=== PATIENT | female | born 1995 | race Caucasian/White ===

== ENCOUNTER 2016-09-16 15:53 | Emergency (ER) | payer OTHER ==
[~2016-09-16] VITALS: Ht 160 cm; Wt 66.2 kg
[~2016-09-16 15:53] MED LIST: ENDOCET 5-3251 EACH PO; IBUPROFEN800 MG PO; PRENATAL TABLE1 EAC3 PO
[2016-09-16 16:07] LABS: BASE EXCESS -0.9 mEq/L (-3 to +3); BICARBONATE 19.2 mEq/L (22-26); CARBOXY HGB 1.2 % (0-5); COMMENTS - BLOOD GASES A+C+; DEVICE AEROSOL MASK; METHEMOGLOBIN 1.2 % (0-1.5); O2 FLOW 8 L/MIN; PCO2 21 mm Hg (35-45); PO2 149 mm Hg (80-100); SITE LR; TOTAL RESP RATE 40 resp/min; pH 7.57 (7.35-7.45)
[2016-09-16 16:31] LABS: HEMATOCRIT 38.2 % (36.0-46.0); MCH 30.2 PG (29.0-34.0); MCHC 33.5 G/DL (30.0-36.0); MCV 90.1 FL (83-99); MEAN PLAT.VOLUME 9.5 uM^3 (9.5-12.4); PLATELET COUNT 233 K/uL (156-360); RBC DIS.WIDTH-CV 12.1 % (11.8-14.6); RBC DIS.WIDTH-SD 39.1 % (39-53); RED BLOOD COUNT 4.24 M/uL (3.80-5.20); WHITE BLOOD COUNT 6.4 K/uL (4.1-10.2)
[2016-09-16 16:42] LABS: CHLORIDE 110 mEq/L (99-109); POTASSIUM 2.6 mEq/L (3.7-5.4); SODIUM 142 mEq/L (136-147)
[2016-09-16 16:44] LABS: GLUCOSE 124 mg/dL (70-99)
[2016-09-16 16:45] LABS: ANION GAP 15 MEQ/L (2-14)
[2016-09-16 16:48] LABS: GFR ESTIMATE (CALCULATED) > 59 mL/min/
[2016-09-16 16:49] LABS: UREA NITROGEN (BUN) 8 mg/dL (9-23)
[2016-09-16 17:39] LABS: QUANTITATIVE HCG < 4.0 MIU/ML
[2016-09-16] MEDS ORDERED: HYCODAN SYRUP480 ML PO (20:02)
[2016-09-16] MEDS ORDERED: ZITHROMAX250 MG PO (20:02)
[2016-09-16 20:22] LABS: INFLUENZA A VIRAL ANTIGEN POSITIVE; INFLUENZA B VIRAL ANTIGEN NEGATIVE
[2016-09-16 20:31] VITALS: BP 123/80
== END 2016-09-16 20:32 | disposition home or self-care (01) ==
LOC: EME 15:53
PROVIDERS: Emergency Medicine
PROC: 0CJS8ZZ Inspection of Larynx, Via Natural or Artificial Opening Endoscopic (ICD-10-PCS; principal; 2016-09-16)
DX: R06.1 Stridor (principal); J11.1 Influenza due to unidentified influenza virus with other respiratory manifestations; J38.7 Other diseases of larynx; Z87.891 Personal history of nicotine dependence
CPT/HCPCS: 36600; 71010; 80048; 82803; 84702; 85027; 87502; 99281; 99285; J0171; J1100; J2060; J7644

== ENCOUNTER 2017-04-27 20:31 | Emergency (ER) | payer OTHER ==
[~2017-04-27] VITALS: Ht 160 cm; Wt 71.3 kg
[~2017-04-27 20:31] MED LIST changes: +HYCODAN SYRUP480 ML PO; +ZITHROMAX250 MG PO
[2017-04-27 21:09] LABS: HEMATOCRIT 34.7 % (36.0-46.0); MCH 31.2 PG (29.0-34.0); MCHC 34.9 G/DL (30.0-36.0); MCV 89.4 FL (83-99); MEAN PLAT.VOLUME 8.8 uM^3 (9.5-12.4); PLATELET COUNT 183 K/uL (156-360); RBC DIS.WIDTH-CV 12.2 % (11.8-14.6); RBC DIS.WIDTH-SD 39.8 % (39-53); RED BLOOD COUNT 3.88 M/uL (3.80-5.20); WHITE BLOOD COUNT 11.6 K/uL (4.1-10.2)
[2017-04-27 21:18] LABS: CHLORIDE 109 mEq/L (99-109); POTASSIUM 3.6 mEq/L (3.7-5.4); SODIUM 140 mEq/L (136-147)
[2017-04-27 21:20] LABS: GLUCOSE 97 mg/dL (70-99)
[2017-04-27 21:21] LABS: ANION GAP 11 MEQ/L (2-14)
[2017-04-27 21:22] LABS: TOTAL BILIRUBIN 0.2 mg/dL (0.0-1.0)
[2017-04-27 21:24] LABS: ALKALINE PHOSPHATASE 83 IU/L (3-129); GFR ESTIMATE (CALCULATED) > 59 mL/min/
[2017-04-27 21:25] LABS: UREA NITROGEN (BUN) 8 mg/dL (9-23)
[2017-04-27 21:26] LABS: DIRECT BILIRUBIN 0.1 mg/dL (0.0-0.3)
[2017-04-27 21:40] LABS: ADD MIUA? YES; BILIRUBIN NEGATIVE; BLOOD SMALL; COLOR YELLOW ((YELLOW)); GLUCOSE (STRIP) NEGATIVE; KETONES 5; LEUKOCYTES TRACE; NITRITE NEGATIVE; PROTEIN (STRIP) NEGATIVE; SPECIFIC GRAVITY 1.017 (1.000-1.030); UROBILINOGEN 0.2 MG/DL (0.2-1.0)
[2017-04-27 21:58] LABS: BACTERIA RARE /HPF; CALCIUM OXALATE CRYSTALS 1+ /HPF; EPITHELIAL CELLS 2+ /HPF; MUCUS TRACE /LPF; UCUL ADDED? NO; WHITE BLOOD CELLS 0-5 /HPF (0-5)
[2017-04-27] MEDS ORDERED: ONDANSETRON ODT8 MG PO (22:11)
[2017-04-27 22:55] LABS: INFLUENZA A VIRAL ANTIGEN NEGATIVE
[2017-04-27 22:56] LABS: INFLUENZA B VIRAL ANTIGEN NEGATIVE
[2017-04-28 01:15] VITALS: BP 98/68
== END 2017-04-28 02:30 | disposition home or self-care (01) ==
LOC: EME 20:31
PROVIDERS: Physician Assistant
DX: O26.893 Other specified pregnancy related conditions, third trimester (principal); M54.5 Low back pain; R06.00 Dyspnea, unspecified; R00.0 Tachycardia, unspecified; R31.9 Hematuria, unspecified; R05 Cough; R50.9 Fever, unspecified; R79.1 Abnormal coagulation profile; Z3A.29 29 weeks gestation of pregnancy; Z53.20 Procedure and treatment not carried out because of patient's decision for unspecified reasons; Z87.891 Personal history of nicotine dependence
CPT/HCPCS: 71020; 71275; 76770; 80048; 80076; 81003; 85027; 85379; 87502; 94640; 99281; 99285; J7030

== ENCOUNTER 2017-07-12 21:05 | Outpatient (CLI) | payer OTHER ==
[~2017-07-12] VITALS: Ht 162.6 cm; Wt 73.0 kg
[~2017-07-12 21:05] MED LIST changes: +ONDANSETRON ODT8 MG PO
[2017-07-12 21:42] VITALS: BP 114/67
[2017-07-12 23:02] VITALS: BP 126/66
[2017-07-13] MEDS ORDERED: IBUPROFEN800 MG PO (19:11)
== END 2017-07-12 23:45 | disposition home or self-care (01) ==
LOC: LDRP-OP → 2WEST 21:08 → LDRP-OP 08-16 11:32
DX: O47.1 False labor at or after 37 completed weeks of gestation (principal); O99.113 Other diseases of the blood and blood-forming organs and certain disorders involving the immune mechanism complicating pregnancy, third trimester; E83.119 Hemochromatosis, unspecified; Z3A.39 39 weeks gestation of pregnancy
CPT/HCPCS: 59025; G0378

== ENCOUNTER 2017-07-13 12:25 | Inpatient (IN) | payer OTHER ==
[2017-07-13] VITALS (17 sets, daily range): BP systolic 110–138; BP diastolic 61–82
[~2017-07-13] VITALS: Ht 162.6 cm; Wt 73.0 kg
[2017-07-13 15:27] LABS: EOSINOPHIL (%) 0.1 % (0-5); HEMATOCRIT 38.9 % (36.0-46.0); IMMATURE GRANULOCYTE (%) 0.6 % (0.0-0.7); IMMATURE GRANULOCYTE COUNT 0.1 K/uL; INSTRUMENT ABS NEUTROPHIL CT 15.1 K/uL; LYMPHOCYTE COUNT 1.5 K/uL (1.0-2.8); MCH 30.3 PG (29.0-34.0); MCHC 34.2 G/DL (30.0-36.0); MCV 88.6 FL (83-99); MEAN PLAT.VOLUME 9.8 uM^3 (9.5-12.4); MONOCYTE (%) 7.3 % (3-12); MONOCYTE COUNT 1.3 K/uL (0-0.8); NEUTROPHIL (%) 83.3 % (45-76); NEUTROPHIL COUNT 15.1 K/uL (1.8-6.4); PLATELET COUNT 229 K/uL (156-360); RBC DIS.WIDTH-CV 12.6 % (11.8-14.6); RED BLOOD COUNT 4.39 M/uL (3.80-5.20); WHITE BLOOD COUNT 18.1 K/uL (4.1-10.2)
[2017-07-13] MEDS ORDERED: IBUPROFEN800 MG PO (19:11)
[2017-07-14 07:18] VITALS: BP 111/65
[2017-07-14 07:48] LABS: EOSINOPHIL (%) 0.3 % (0-5); EOSINOPHIL COUNT 0.1 K/uL (0-0.3); HEMATOCRIT 35.6 % (36.0-46.0); IMMATURE GRANULOCYTE (%) 0.6 % (0.0-0.7); IMMATURE GRANULOCYTE COUNT 0.1 K/uL; INSTRUMENT ABS NEUTROPHIL CT 10.7 K/uL; LYMPHOCYTE COUNT 2.7 K/uL (1.0-2.8); MCH 30.6 PG (29.0-34.0); MCHC 33.4 G/DL (30.0-36.0); MCV 91.5 FL (83-99); MEAN PLAT.VOLUME 9.9 uM^3 (9.5-12.4); MONOCYTE (%) 12.6 % (3-12); NEUTROPHIL (%) 68.9 % (45-76); NEUTROPHIL COUNT 10.7 K/uL (1.8-6.4); PLATELET COUNT 197 K/uL (156-360); RBC DIS.WIDTH-CV 12.8 % (11.8-14.6); RBC DIS.WIDTH-SD 42.6 % (39-53); RED BLOOD COUNT 3.89 M/uL (3.80-5.20); WHITE BLOOD COUNT 15.5 K/uL (4.1-10.2)
[2017-07-14 15:15] VITALS: BP 116/69
[2017-07-14 22:12] VITALS: BP 108/70
[2017-07-15 07:08] VITALS: BP 106/57
[2017-07-15] MEDS ORDERED: ENDOCET 5-3251 EACH PO (09:21)
[2017-07-15 15:53] VITALS: BP 116/87
== END 2017-07-15 17:00 | disposition home or self-care (01) | DRG 775 ==
LOC: LDRP-OP 12:25 → 2WEST 12:27 → LDRP-OP 08-16 23:51
PROVIDERS: Midwife
PROC: 10E0XZZ Delivery of Products of Conception, External Approach (ICD-10-PCS; principal; 2017-07-13)
PROC: 3E0R3BZ Introduction of Anesthetic Agent into Spinal Canal, Percutaneous Approach (ICD-10-PCS; principal; 2017-07-13)
PROC: 10907ZC Drainage of Amniotic Fluid, Therapeutic from Products of Conception, Via Natural or Artificial Opening (ICD-10-PCS; principal; 2017-07-13)
PROC: 00HU33Z Insertion of Infusion Device into Spinal Canal, Percutaneous Approach (ICD-10-PCS; principal; 2017-07-13)
DX: O99.824 Streptococcus B carrier state complicating childbirth (principal); Z37.0 Single live birth; Z3A.39 39 weeks gestation of pregnancy
CPT/HCPCS: 85025; C1755; J0595; J2405; J2540; J3010; J7120